=== PATIENT | female | born 1975 | race Hispanic/Latino ===

== ENCOUNTER 2020-11-29 19:46 | Emergency (ER) | payer OTHER ==
[~2020-11-29] VITALS: Ht 160 cm; Wt 86.2 kg
[2020-11-29 20:04] VITALS: BP 141/75
[2020-11-29] MEDS ORDERED: CEPHALEXIN 250 MG CAPSULE PO SCH (23:00)
[2020-11-29] MEDS ORDERED: TETANUS/DIPHTHERIA TOXOID [ADULT] 0.5 ML VIAL IM ONE (23:00)
[2020-11-29] MEDS ORDERED: CEPH250C2 PO (23:19)
[2020-11-29 23:35] VITALS: BP 154/97
== END 2020-11-29 23:55 | disposition home or self-care (01) ==
LOC: EDH 19:46
DX: S61.012A Laceration without foreign body of left thumb without damage to nail, initial encounter (principal); E11.9 Type 2 diabetes mellitus without complications; W26.0XXA Contact with knife, initial encounter; Y93.89 Activity, other specified; Y92.89 Other specified places as the place of occurrence of the external cause; Y99.8 Other external cause status
CPT/HCPCS: 90471; 90714